=== PATIENT | female | born 1995 | race American Indian/Alaskan Native ===

== ENCOUNTER 2018-01-10 01:53 | Emergency (ER) | payer SELFPAY ==
[2018-01-10 03:11] VITALS: BP 104/70
[2018-01-10] MEDS ORDERED: DELTASONE PO ONE (05:22)
[2018-01-10] MEDS ORDERED: LIDOCAINE VISCOUS 2% ONE (05:22)
--- NOTE | 2018-01-10 05:29 | Emergency Department Report ---
ED ENT HPI - General Chief complaint: Dyspnea/Respdistress Stated complaint: FEVERB SHORTNESS OF BREATH Time Seen by Provider: 01/10/18 05:11 Source: patient Mode of arrival: Ambulatory Limitations: No Limitations - History of Present Illness Initial comments: 22-year-old college student comes in for 3 day history of intermittent fevers with a MAXIMUM TEMPERATURE of 103. Complaining of sore throat and body aches. She reports that she's tried [id number] medicine with some help. She reports that she's had her tonsils and adenoids removed. She denies any nausea vomiting no headache. MD complaint: sore throat -: days(s) (3) Location: throat Severity: severe Severity scale (0 -10): 8 Quality: burning, stabbing Consistency: intermittent Improves with: none Worsens with: swallowing Associated Symptoms: fever - Related Data Previous Rx's Medication Instructions Recorded Last Taken Type Amoxicillin [Amoxicillin TAB] 875 mg PO BID #20 tablet 01/10/18 Unknown Rx Ibuprofen [Motrin 800 MG tab] 800 mg PO Q8HR PRN #30 tablet 01/10/18 Unknown Rx Allergies Allergy/AdvReac Type Severity Reaction Status Date / Time No Known Allergies Allergy Unverified 01/10/18 03:11 ED Dental HPI - General Chief complaint: Dyspnea/Respdistress Stated complaint: FEVERB SHORTNESS OF BREATH Time Seen by Provider: 01/10/18 05:11 Source: patient Mode of arrival: Ambulatory Limitations: No Limitations - Related Data Previous Rx's Medication Instructions Recorded Last Taken Type Amoxicillin [Amoxicillin TAB] 875 mg PO BID #20 tablet 01/10/18 Unknown Rx Ibuprofen [Motrin 800 MG tab] 800 mg PO Q8HR PRN #30 tablet 01/10/18 Unknown Rx Allergies Allergy/AdvReac Type Severity Reaction Status Date / Time No Known Allergies Allergy Unverified 01/10/18 03:11 ED Review of Systems ROS: Stated complaint: FEVERB SHORTNESS OF BREATH Other details as noted in HPI Constitutional: fever Eyes: denies: eye pain, eye discharge, vision change ENT: throat pain Respiratory: denies: cough, shortness of breath, wheezing ED Past Medical Hx - Past Medical History Hx Asthma: Yes - Surgical History Past Surgical History?: Yes Additional Surgical History: ganglion cyst r wrist removed, tonsilectomy, adenoidectomy - Social History Smoking Status: Never Smoker Substance Use Type: None - Medications Home Medications: Home Medications Medication Instructions Recorded Confirmed Last Taken Type Amoxicillin [Amoxicillin TAB] 875 mg PO BID #20 tablet 01/10/18 Unknown Rx Ibuprofen [Motrin 800 MG tab] 800 mg PO Q8HR PRN #30 tablet 01/10/18 Unknown Rx ED Physical Exam - General Limitations: No Limitations General appearance: alert, in no apparent distress - Eye Eye exam: Present: normal appearance - ENT ENT exam: Present: mucous membranes moist - Expanded ENT Exam Expanded Ear exam: Present: normal external inspection Throat exam: Positive: other (edematous and erythematous pharynx) - Neck Neck exam: Present: lymphadenopathy - Respiratory Respiratory exam: Present: normal lung sounds bilaterally. Absent: respiratory distress - Cardiovascular Cardiovascular Exam: Present: tachycardia - GI/Abdominal GI/Abdominal exam: Present: soft, normal bowel sounds ED Course Vital Signs 01/10/18 01/10/18 03:07 04:37 Temperature 99.5 F Pulse Rate 123 H Respiratory 18 Rate Blood Pressure 104/70 O2 Sat by Pulse 99 98 Oximetry ED Medical Decision Making - Medical Decision Making Patient's been evaluated by this provider fast track. I discussed the patient that her rapid strep came back positive. We will give patient ibuprofen 1000 mg , prednisone 40 mg, viscous lidocaine. Discussed with patient I would discharge her on amoxicillin 875 mg twice a day for 10 days. She needs to follow up with her primary care provider if symptoms persist or gets worse. Critical care attestation.: If time is entered above; I have spent that time in minutes in the direct care of this critically ill patient, excluding procedure time. ED Disposition Clinical Impression: Streptococcal sore throat Disposition: DC-01 TO HOME OR SELFCARE Is pt being admited?: No Does the pt Need Aspirin: No Condition: Stable Instructions: Strep Throat (ED) Additional Instructions: Please complete antibiotics as prescribed. Please take ibuprofen as needed for sore throat. Please follow up with her primary care provider if symptoms persist or gets worse. Prescriptions: Amoxicillin [Amoxicillin TAB] 875 mg PO BID #20 tablet Ibuprofen [Motrin 800 MG tab] 800 mg PO Q8HR PRN #30 tablet PRN Reason: Pain Referrals: PRIMARY CARE, [Primary Care Provider] - 3-5 Days
[2018-01-10] MEDS: TYLENOL PO ONE (05:30)
[2018-01-10] MEDS: LIDOCAINE VISCOUS 2% PO ONE (05:31)
[2018-01-10] MEDS: DELTASONE PO ONE (05:31)
== END 2018-01-10 05:49 | disposition home or self-care (01) ==
LOC: ED 01:53
DX: J02.0 Streptococcal pharyngitis (principal)
CPT/HCPCS: 87430; 99283; J7512